=== PATIENT | male | born 1930 | race Caucasian/White ===

== ENCOUNTER 2017-04-29 13:57 | Inpatient (IN) | payer MEDICARE ==
[~2017-04-29] VITALS: Ht 188 cm; Wt 99.5 kg
[2017-04-29] MEDS ORDERED: ASPI-555 PO (15:17)
[2017-04-29] MEDS ORDERED: SIMV40TA59 PO (15:17)
[2017-04-29] MEDS ORDERED: LEVO50TA11 PO (15:17)
[2017-04-29] MEDS ORDERED: OMEP20CA10 PO (15:17)
[2017-04-29] MEDS ORDERED: DILT120C89 PO (15:17)
[2017-04-29] MEDS ORDERED: ALBU0.63 IH (15:17)
[2017-04-29] MEDS ORDERED: APIX5TAB PO (15:17)
[2017-04-29] MEDS ORDERED: FINA5TAB41 PO (15:17)
[2017-04-29] MEDS ORDERED: HEPARIN SODIUM 5000UNIT/ML 1ML VIAL SQ PRN ×2 (15:30→19:30)
[2017-04-29] MEDS ORDERED: HEPARIN 25000 UNITS/250 ML D5W 250 ML IV SCH (15:30)
[2017-04-29 15:59] LABS: BASOPHILS % (AUTO) 0.5 % (0.0-5.0); EOSINOPHILS % (AUTO) 2.7 % (0.0-8.0); HEMATOCRIT 45.3 % (42-54); LYMPHOCYTES % (AUTO) 17.8 % (21.0-51.0); MEAN CORPUSCULAR HEMOGLOBIN 27.7 pg (27.0-33.0); MEAN CORPUSCULAR HGB CONC 32.4 g/dL (32.0-36.0); MEAN CORPUSCULAR VOLUME 85.5 fL (79-99); MONOCYTES % (AUTO) 7.9 % (3.0-13.0); NEUTROPHILS % (AUTO) 71.1 % (40.0-77.0); PLATELET COUNT (AUTO) 248 K/uL (130-400); RED CELL DISTRIBUTION WIDTH 16.7 % (11.0-15.5); WHITE BLOOD COUNT (AUTO) 10.6 K/uL (4.8-10.8)
[2017-04-29 16:00] VITALS: BP 170/98
[2017-04-29 16:06] LABS: POTASSIUM 3.9 mmol/L (3.5-5.1)
[2017-04-29 16:21] LABS: EOSINOPHILS % (MANUAL) 1 % (1-6); LYMPHOCYTES % (MANUAL) 14 % (22-44); METAMYELOCYTES % 1 % (0-0); MONOCYTES % (MANUAL) 11 % (2-9); REACTIVE LYMPHOCYTES 7 % (0-0); SEGMENTED NEUTROPHILS % 66 % (40-70)
[2017-04-29 16:22] LABS: PLATELET MORPHOLOGY COMMENT ADEQUATE
[2017-04-29] MEDS ORDERED: IOPAMIDOL-370 75 ML VIAL IV ONE (16:41)
[2017-04-29] MEDS ORDERED: ISOVUE-370 50ML VIAL IV ONE (16:42)
[2017-04-29 17:02] LABS: ERYTHROCYTE SEDIMENTATION RATE 20 MM/HR (0-15)
[2017-04-29 19:00] VITALS: BP 142/91
[2017-04-29 19:39] LABS: INR 0.95 (0.85-1.15); PARTIAL THROMBOPLASTIN TIME 27.3 SEC (26.3-35.5)
[2017-04-29] MEDS: HEPARIN 25000 UNITS/250 ML D5W 250 ML IV SCH (21:04)
[2017-04-29] MEDS ORDERED: HEPARIN SODIUM 5000UNIT/ML 1ML VIAL SQ ONE (21:30)
[2017-04-29] MEDS ORDERED: POTASSIUM CHLORIDE 20 MEQ ERTAB PO PRN (21:30)
[2017-04-29] MEDS ORDERED: POTASSIUM CHLORIDE 20MEQ/100ML 100 ML IV PRN (21:30)
[2017-04-29] MEDS ORDERED: POTASSIUM CHLORIDE 10% ELIXIR 20 MEQ/15 ML UDCUP PO PRN (21:30)
[2017-04-29] MEDS ORDERED: LIDOCAINE HCL-MPF 1% 2ML VIAL IVP PRN (21:30)
[2017-04-29 23:00] VITALS: BP 164/88
[2017-04-29] MEDS: BACLOFEN 10 MG TABLET PO SCH (23:00)
[2017-04-29] MEDS: PANTOPRAZOLE SODIUM 40 MG TABLET.DR PO SCH (23:00)
[2017-04-30 03:00] VITALS: BP 149/94
[2017-04-30 03:50] LABS: HEMATOCRIT 40.1 % (42-54); MEAN CORPUSCULAR HEMOGLOBIN 28.1 pg (27.0-33.0); MEAN CORPUSCULAR HGB CONC 33.2 g/dL (32.0-36.0); MEAN CORPUSCULAR VOLUME 84.6 fL (79-99); PLATELET COUNT (AUTO) 212 K/uL (130-400); RED BLOOD CELL COUNT(AUTO) 4.75 MIL/uL (4.50-6.20); RED CELL DISTRIBUTION WIDTH 16.7 % (11.0-15.5); WHITE BLOOD COUNT (AUTO) 8.5 K/uL (4.8-10.8)
[2017-04-30 04:02] LABS: CREATININE 1.1 mg/dL (0.5-1.5); POTASSIUM 3.7 mmol/L (3.5-5.1)
[2017-04-30 04:33] LABS: BAND NEUTROPHILS % (MANUAL) 2 % (0-2); EOSINOPHILS % (MANUAL) 3 % (1-6); LYMPHOCYTES % (MANUAL) 23 % (22-44); MAN.DIFF COMMENT-IMPRESSION MANUAL DIFFERENTIAL; METAMYELOCYTES % 1 % (0-0); MONOCYTES % (MANUAL) 4 % (2-9); SEGMENTED NEUTROPHILS % 67 % (40-70)
[2017-04-30 04:34] LABS: PLATELET MORPHOLOGY COMMENT ADEQUATE
[2017-04-30] MEDS ORDERED: POTASSIUM CHLORIDE 10 MEQ/TAB.SA PO ONE ×4 (04:41→06:34)
[2017-04-30] MEDS: LEVOTHYROXINE 50 MCG TABLET PO SCH (05:38)
[2017-04-30 07:49] VITALS: BP 143/92
[2017-04-30] MEDS ORDERED: ALBUTEROL SULFATE 0.042% 1.25 MG/3 ML INH IH PRN (09:00)
[2017-04-30] MEDS: DILTIAZEM HCL 120 MG CAP.SR.24H PO SCH (10:37)
[2017-04-30] MEDS: BACLOFEN 10 MG TABLET PO SCH ×2 (10:37→20:59)
[2017-04-30] MEDS: ASPIRIN 81MG TAB.CHEW PO SCH (10:37)
[2017-04-30] MEDS: FINASTERIDE 5 MG TABLET PO SCH (10:37)
[2017-04-30 11:40] VITALS: BP 135/93
[2017-04-30 16:00] VITALS: BP 132/82
[2017-04-30 20:17] VITALS: BP 134/74
[2017-04-30] MEDS: ATORVASTATIN CALCIUM 10 MG TABLET PO SCH (20:58)
[2017-04-30] MEDS: PANTOPRAZOLE SODIUM 40 MG TABLET.DR PO SCH (20:59)
[2017-04-30 23:50] VITALS: BP 129/76
[2017-05-01 04:00] VITALS: BP 124/81
[2017-05-01] MEDS: HEPARIN 25000 UNITS/250 ML D5W 250 ML IV SCH ×2 (06:00→22:08)
[2017-05-01] MEDS: LEVOTHYROXINE 50 MCG TABLET PO SCH (06:03)
[2017-05-01 07:00] VITALS: BP 128/82
[2017-05-01] MEDS: BACLOFEN 10 MG TABLET PO SCH ×3 (08:32→21:32)
[2017-05-01] MEDS: FINASTERIDE 5 MG TABLET PO SCH (08:32)
[2017-05-01] MEDS: DILTIAZEM HCL 120 MG CAP.SR.24H PO SCH (08:33)
[2017-05-01] MEDS: ASPIRIN 81MG TAB.CHEW PO SCH (08:33)
[2017-05-01] MEDS: ACETAMINOPHEN EXTRA STRENGTH 500 MG TABLET PO PRN ×2 (09:56→21:32)
[2017-05-01 11:00] VITALS: BP 120/75
[2017-05-01 16:00] VITALS: BP 129/70
[2017-05-01 19:40] VITALS: BP 136/74
[2017-05-01] MEDS: PANTOPRAZOLE SODIUM 40 MG TABLET.DR PO SCH (21:00)
[2017-05-01] MEDS: ATORVASTATIN CALCIUM 10 MG TABLET PO SCH (21:00)
[2017-05-01 23:24] VITALS: BP 119/78
[2017-05-02 03:59] VITALS: BP 113/73
[2017-05-02 04:20] LABS: HEMATOCRIT 38.4 % (42-54); MEAN CORPUSCULAR HEMOGLOBIN 28.8 pg (27.0-33.0); MEAN CORPUSCULAR HGB CONC 34.2 g/dL (32.0-36.0); MEAN CORPUSCULAR VOLUME 84.2 fL (79-99); NUCLEATED RED BLOOD CELLS 0.1 % (0.0-0.19); PLATELET COUNT (AUTO) 193 K/uL (130-400); RED BLOOD CELL COUNT(AUTO) 4.56 MIL/uL (4.50-6.20); RED CELL DISTRIBUTION WIDTH 16.9 % (11.0-15.5); WHITE BLOOD COUNT (AUTO) 6.4 K/uL (4.8-10.8)
[2017-05-02] MEDS: LEVOTHYROXINE 50 MCG TABLET PO SCH (05:58)
[2017-05-02] MEDS: ASPIRIN 81MG TAB.CHEW PO SCH (06:06)
[2017-05-02] MEDS: FINASTERIDE 5 MG TABLET PO SCH (06:07)
[2017-05-02] MEDS: DILTIAZEM HCL 120 MG CAP.SR.24H PO SCH (06:07)
[2017-05-02 07:00] VITALS: BP 125/77
[2017-05-02] MEDS: BACLOFEN 10 MG TABLET PO SCH (08:31)
[2017-05-02] MEDS: ACETAMINOPHEN EXTRA STRENGTH 500 MG TABLET PO PRN (08:32)
[2017-05-02] MEDS ORDERED: APIXABAN 5 MG TABLET PO SCH (09:00)
[2017-05-02 11:00] VITALS: BP 125/74
== END 2017-05-02 12:25 | disposition home or self-care (01) | DRG 300 ==
LOC: EDH 13:57 → 2AH 15:33
PROVIDERS: ADMIT Internal Medicine; ATTEND Internal Medicine
DX: I70.201 Unspecified atherosclerosis of native arteries of extremities, right leg (principal); D68.69 Other thrombophilia; I48.0 Paroxysmal atrial fibrillation; I99.8 Other disorder of circulatory system; E03.9 Hypothyroidism, unspecified; E78.5 Hyperlipidemia, unspecified; G89.29 Other chronic pain; I25.10 Atherosclerotic heart disease of native coronary artery without angina pectoris; M54.9 Dorsalgia, unspecified; R23.1 Pallor; I10 Essential (primary) hypertension; I25.2 Old myocardial infarction; Z79.01 Long term (current) use of anticoagulants; Z82.49 Family history of ischemic heart disease and other diseases of the circulatory system; Z85.51 Personal history of malignant neoplasm of bladder; Z95.5 Presence of coronary angioplasty implant and graft; Z88.5 Allergy status to narcotic agent; Z79.82 Long term (current) use of aspirin; Z79.899 Other long term (current) drug therapy
CPT/HCPCS: 36415; 75635; 80048; 80061; 82948; 85025; 85027; 85610; 85651; 85730; 86038; 86215; 86235; 86431; 93306; 93970; 94664; J1644; Q9967